=== PATIENT | male | born 1945 | race Caucasian/White ===

== ENCOUNTER 2025-06-11 14:46 | Outpatient (RCR) | payer MEDICARE, SELFPAY ==
--- NOTE | 2025-06-11 15:46 | OPREHPOC ---
Outpatient Therapy Plan of Care This is a Multidisciplinary Plan of Care that may contain components documented by all disciplines (PT, OT, and ST.) PT Problem 1 PT Problem #1 Knowledge Deficit PT Goal 1 Goal / Goal Update Independent and compliant with HEP. Target Visit 2 PT Problem 2 PT Problem #2 Impaired Strength PT Goal 1 Goal / Goal Update Pt to improve bilat hip strength to 5/5. Pt to improve L ankle df strength to 3/5. Target Visit 18 PT Problem 3 PT Problem #3 Impaired Gait PT Goal 1 Goal / Goal Update Pt to reach 1000ft distance during 6MWT without L toe catching. Target Visit 18 PT Problem 4 PT Problem #4 Impaired Functional Mobility PT Goal 1 Goal / Goal Update Pt to improve 5xSTS to 15 sec or less without use of UEs. Pt to report 10% or more reduction in perceived disability on Oswestry. Target Visit 18
--- NOTE | 2025-06-11 15:46 | PTOPEVAL1 ---
Assessment and note entered by Jackelyn Atwood, PT Evaluation Information Assessment Status Evaluation ICD-10 Condition Codes (PT) Radiculopathy, lumbar region M54.16 Other ICD-10 Condition Codes ( G89.29, M43.16 PT) Subjective Information Pt reports history of low back pain and sciatica. He reports the most recent bout of back pain and pain down the leg came back again around 6 weeks ago and has persisted. He has most difficulty with walking long distances due to pain and weakness. Also notes he cannot lift his L toes and ankle up of the ground which causes difficulty with walking and makes him scared of falling. States he will be getting an MRI but his doctor wants him to do PT as well. He initially was taking pain meds but has not been taking them the last few weeks and denies pain overall. Reported Pain Level Pain Score 0: Self Report Assessment PT Clinical Summary Mr. Sandoval is an 79 yo male presenting to skilled PT visit for low back pain with radicular symptoms along with difficulty walking. He demonstrates moderate impairments in bilateral hip flexion strength as well as severe impairments in L ankle dorsiflexion strength. He also demonstrates overall stiffness in the lumbar spine especially in extension and lateral flexion. Pt also demonstrates postural deficits in standing such as hip drop on the L with compensatory lumbar spine side bending, along with gait deficits such as lack of heel contact and foot clearance on the L leg with occasional toe catching. He will benefit from skilled PT intervention to improve hip and abdominal strength as well as gait deficits to reduce fall risk and improve stability . Plan of Care Interventions Electrical Stimulation,Gait Training,Hot Pack/Cold Pack,Manual Therapy,Neuro Re-education,Patient/ Caregiver Education,Therapeutic Activities, Therapeutic Exercise,Self-Care/Home Management PT Services Indicated Yes Treatment Frequency and 3x/week for 18 visits Duration These treatments will address the objective and functional deficits as defined above. The patient will be advanced safely and appropriately in order for the patient to progress towards his/her prior level of function. Additional exercises will be introduced and as well as a comprehensive home exercise program upon discharge, if needed, ?to ensure carryover of functional gains achieved in the clinic. This treatment plan has been reviewed and agreement upon by the patient.
--- NOTE | 2025-07-07 17:33 | PCPTNOTE ---
Patient called & cancelled scheduled appointment this date due to [ ]
--- NOTE | 2025-07-07 17:33 | PCPTNOTE ---
Patient called & cancelled scheduled appointment this date.
== END 2025-09-09 23:59 | disposition home or self-care (01) ==
LOC: CHSPT 14:46
PROVIDERS: Visit Provider Family Medicine Sports Medicine
DX: M43.16 Spondylolisthesis, lumbar region (principal); M54.16 Radiculopathy, lumbar region; G89.29 Other chronic pain
CPT/HCPCS: 97110; 97112; 97150; 97161; 97530